=== PATIENT | male | born 1975 | race Caucasian/White ===

== ENCOUNTER 2022-03-08 05:45 | Emergency (ER) | payer OTHER ==
[2022-03-08] MEDS ORDERED: VIBRA-TAB100 MG PO (09:26)
[2022-03-08] MEDS ORDERED: HYDROCODONE-AC1 EAC1 PO (09:26)
== END 2022-03-08 09:39 | disposition home or self-care (01) ==
LOC: ED 05:45
DX: S62.521A Displaced fracture of distal phalanx of right thumb, initial encounter for closed fracture (principal); Z88.0 Allergy status to penicillin; X58.XXXA Exposure to other specified factors, initial encounter; Y93.89 Activity, other specified; Y92.89 Other specified places as the place of occurrence of the external cause; Y99.8 Other external cause status